=== PATIENT | female | born 1980 | race Two or more races ===

== ENCOUNTER → 2024-05-09 | Outpatient (CLI) | payer BC, SELFPAY ==
[2024-05-09 07:51] LABS: Collection Type, Urine Clean Catch; WBC,Urine 0 /hpf (0-5)
[2024-05-09 08:32] LABS: Vitamin B12 418 pg/mL (211-911); Vitamin D 25 Hydroxy Total 27.8 ng/mL (7.3-40.2)
[2024-05-09 08:37] LABS: Alanine Aminotransferase 16 U/L (10-49); Albumin, Serum 4.3 gm/dL (3.5-5.0); Albumin/Globulin Ratio 1.7 (1.2-2.2); Alkaline Phosphatase 93 U/L (46-116); Anion Gap 7 (7-16); Aspartate Amino Transferase 17 U/L (0-34); BUN/Creatinine Ratio 22 Ratio (12-20); Bilirubin,Total 0.5 mg/dL (0.3-1.2); Blood Urea Nitrogen 13 mg/dL (9-23); Calcium 8.8 mg/dL (8.3-10.6); Calcium (Corrected) 8.8 mg/dL (8.5-10.1); Carbon Dioxide 25.9 mMol/L (20.0-31.0); Chloride 107 mMol/L (98-107); Cholesterol 110 mg/dL (132-200); Creatinine (Component) 0.6 mg/dL (0.6-1.3); Globulin 2.6 gm/dL (2.3-3.5); Glucose 82 mg/dL (74-106); HDL Cholesterol 54 mg/dL (40-60); LDL Cholesterol,Calculated 43 mg/dL (0-130); Osmolality,Calculated 278 (275-295); Potassium 4.5 mMol/L (3.4-5.1); Sodium 140 mMol/L (136-145); Thyroid Stimulating Hormone 2.63 uIU/mL (0.55-4.78); Total Protein 6.9 gm/dL (5.7-8.2); Triglycerides 66 mg/dL (30-150); eGFR > 60 See Note
[2024-05-09 08:50] LABS: Glucose Estimated Average 108 mg/dL (80-131); Hemoglobin A1C 5.4 % Hgb (4.8-6.0)
[2024-05-09 09:15] LABS: Basophils % (Auto) 1 % (0-2.5); Eosinophils # (Auto) 0.1 Thou/mm3 (0.0-0.5); Eosinophils % (Auto) 1 % (0-10); Hematocrit 32.4 % (36.0-46.0); Hemoglobin 10.1 g/dL (12.0-16.0); Immature Granulocytes % (Auto) 0 % (0-0); Immature Granulocytes Auto 0.01 Thou/mm3 (0.00-0.00); Lymphocytes # (Auto) 1.8 Thou/mm3 (1.0-4.8); Lymphocytes % (Auto) 32 % (10-50); Mean Corpuscular HGB Conc 31.2 g/dl (31.0-37.0); Mean Corpuscular Hemoglobin 23.7 pg (25.0-35.0); Mean Corpuscular Volume 76 fL (80-100); Monocytes # (Auto) 0.4 Thou/mm3 (0.0-0.8); Monocytes % (Auto) 7 % (0-12); Neutrophils # (Auto) 3.4 Thou/mm3 (1.8-7.7); Neutrophils % (Auto) 59 % (37-80); Nucleated Red Blood Cell % 0 /100 WBC (0); Platelet Count 219 Thou/mm3 (140-440); RDW Standard Deviation 38.5 fL (36.4-46.3); Red Blood Count 4.26 Miln/mm3 (4.00-5.20); White Blood Count 5.8 Thou/mm3 (3.6-11.0)
[2024-05-09 10:09] LABS: Bacteria,Urine Rare; Bilirubin,Urine Negative (Negative); Blood,Urine Trace (Negative); Clarity,Urine Clear (Clear/Hazy); Color,Urine Yellow (Lt Yel-Yel); Glucose, Urine Negative (Negative); Ketones,Urine Negative (Negative); Leukocyte Esterase,Urine Negative (Negative); Nitrite,Urine Negative (Negative); PH,Urine 6.5 (5.0-7.0); Protein,Urine Negative (Neg - Trace); RBC,Urine 4 /hpf (0-3); Specific Gravity,Urine 1.025 (1.001-1.035); Squamous Epithelial Cell,Urine 2 /hpf (0-5)
== END | disposition home or self-care (01) ==
PROVIDERS: PCP Internal Medicine; Referring Provider Internal Medicine; Visit Provider Internal Medicine
DX: Z00.00 Encounter for general adult medical examination without abnormal findings (principal)
CPT/HCPCS: 36415; 80053; 80061; 81001; 82306; 82607; 83036; 84443; 84550; 85025

== ENCOUNTER → 2024-06-01 | Outpatient (CLI) | payer BC, SELFPAY ==
--- NOTE | 2024-06-01 16:00 | XR_ITS ---
Examination: CT chest, without intravenous contrast. Sagittal and coronal 2-D reconstructions. Exam date and time: June 01, 2024 1609 hours INDICATIONS: CT chest October 26, 2023 3 mm nodule meters nodule right lower 4 mm pulmonary nodule left lower CTDI:vol (mGy) 14 DLP: (mGycm) 80 Technique: Multiple 3.0 mm axial sections of the chest to been obtained. Bone and lung density settings are obtained. Sagittal and coronal 2-D reconstructions have been obtained. Low dose protocols were performed. One or more of the following dose reduction techniques were used; automated exposure control, adjustment of the mA and/or KV according to patient size, use of iterative reconstruction technique. Findings: No thoracic aortic aneurysm dilatation Pulmonary artery segments are not enlarged No paratracheal tracheobronchial or pulmonary adenopathy Stable bilateral pulmonary nodules No new pulmonary nodules No pneumonia pulmonary edema disease No visualized liver or splenic lesion Gastric sutures Absent gallbladder No hydronephrosis IMPRESSION: Stable bilateral subcentimeter pulmonary nodules No new pulmonary nodules
== END | disposition home or self-care (01) ==
PROVIDERS: PCP Internal Medicine; Referring Provider Specialist; Visit Provider Specialist
DX: R91.1 Solitary pulmonary nodule (principal)
CPT/HCPCS: 71250

== ENCOUNTER 2024-07-05 05:30 | Inpatient (IN) | payer BC, SELFPAY ==
--- NOTE | 2024-07-01 08:02 | ESHP_ITS ---
RE: THAO THOMSON : 1980 DATE OF ADMISSION: 07/05/2024 HISTORY OF PRESENT ILLNESS: This is a 44-year-old gravity 3, para 3 with abnormal uterine bleeding, leiomyomatous uterus, dysmenorrhea, who presents for hysterectomy. ALLERGIES: NO KNOWN DRUG ALLERGIES. MEDICATIONS: None. PAST MEDICAL HISTORY: Cutaneous leiomyoma, benign pulmonary nodule, cholelithiasis, gastric bypass, iron deficiency anemia. PAST SURGICAL HISTORY: delivery in 2006 and 2008, bilateral tubal ligation with delivery in 2008. FAMILY HISTORY: Mother with diabetes and asthma. REVIEW OF SYSTEMS: The patient denies any chest pain, palpitations, cough, fever, shortness of breath, or lower extremity pain. PHYSICAL EXAMINATION: VITAL SIGNS: Blood pressure 129/75, heart rate 67, respirations 18, temperature 98.7, weight 166 pounds. HEENT: Oropharynx and sclerae are clear. LUNGS: Clear to auscultation bilaterally. HEART: Regular rate and rhythm. ABDOMEN: Old Pfannenstiel scar noted. EXTREMITIES: Nontender. SKIN: No gross rashes or lesions. NEUROLOGIC: No focal deficits. ASSESSMENT: Symptomatic leiomyomatous uterus. PLAN: Abdominal hysterectomy, possible bilateral salpingo-oophorectomy, possible subtotal abdominal hysterectomy. Informed consent was obtained. The patient made aware of the risks, complications, alternatives, and benefits of the proposed procedure and she agrees. She is aware of the risk of injury to bowel or bladder, uterus, ureters, adjacent organs, nerve injury to the legs and skin, pulmonary embolism, deep vein thrombosis, injury to the vessels of the abdominal wall, hematoma, abscess, wound infection, wound dehiscence, pelvic infection, reoperation to repair injury to internal organs, anesthesia complications, the need for future surgery to remove ovaries, the need to take hormone therapy and its associated risks, uncontrollable loss of urine symptoms, prolapse of the vagina, and rarely . She is aware that in some cases, a subtotal hysterectomy may need to be performed if severe adhesions of bladder to lower uterine segment and she is aware that in rare cases, the procedure is unable to be performed due to intraoperative findings prohibiting the procedure to be completed. DT: 06:52:16 TT: 07:53:00 Ref: [id number] - TID: [id number] [facility]
[2024-07-04 10:21] VITALS: BMI 35.6
[2024-07-04 11:02] LABS: Basophils % (Auto) 1 % (0-2.5); Eosinophils # (Auto) 0.1 Thou/mm3 (0.0-0.5); Eosinophils % (Auto) 1 % (0-10); Hematocrit 32.2 % (36.0-46.0); Hemoglobin 9.9 g/dL (12.0-16.0); Immature Granulocytes % (Auto) 0 % (0-0); Immature Granulocytes Auto 0.02 Thou/mm3 (0.00-0.00); Lymphocytes # (Auto) 1.8 Thou/mm3 (1.0-4.8); Lymphocytes % (Auto) 34 % (10-50); Mean Corpuscular HGB Conc 30.7 g/dl (31.0-37.0); Mean Corpuscular Hemoglobin 22.6 pg (25.0-35.0); Mean Corpuscular Volume 74 fL (80-100); Monocytes # (Auto) 0.4 Thou/mm3 (0.0-0.8); Monocytes % (Auto) 7 % (0-12); Neutrophils # (Auto) 3.1 Thou/mm3 (1.8-7.7); Neutrophils % (Auto) 58 % (37-80); Nucleated Red Blood Cell % 0 /100 WBC (0); Platelet Count 261 Thou/mm3 (140-440); RDW Standard Deviation 35.8 fL (36.4-46.3); Red Blood Count 4.38 Miln/mm3 (4.00-5.20); White Blood Count 5.4 Thou/mm3 (3.6-11.0)
[2024-07-04 11:10] LABS: Partial Thromboplastin Time 24.5 Seconds (22.0-36.0); Prothrombin Time 11.2 Seconds (9.0-12.2)
[2024-07-04 11:16] LABS: Alanine Aminotransferase 17 U/L (10-49); Albumin, Serum 4.4 gm/dL (3.5-5.0); Albumin/Globulin Ratio 1.5 (1.2-2.2); Alkaline Phosphatase 98 U/L (46-116); Anion Gap 10 (7-16); Aspartate Amino Transferase 21 U/L (0-34); BUN/Creatinine Ratio 15 Ratio (12-20); Beta HCG,Quantitative < 1 mIU/mL (<5.0); Bilirubin,Total 0.5 mg/dL (0.3-1.2); Blood Urea Nitrogen 9 mg/dL (9-23); Calcium 8.7 mg/dL (8.3-10.6); Calcium (Corrected) 8.7 mg/dL (8.5-10.1); Carbon Dioxide 23.4 mMol/L (20.0-31.0); Chloride 107 mMol/L (98-107); Creatinine (Component) 0.6 mg/dL (0.6-1.3); Estimated Creatinine Clearance 99.2 mL/min (>60); Globulin 2.9 gm/dL (2.3-3.5); Glucose 84 mg/dL (74-106); Osmolality,Calculated 277 (275-295); Sodium 140 mMol/L (136-145); Total Protein 7.3 gm/dL (5.7-8.2); eGFR > 60 See Note
[2024-07-05] VITALS (11 sets, daily range): BP systolic 99–133; BP diastolic 53–79; PULSE 68–96; RESP 12–20; TEMP 36.4–36.8; O2SAT 96–100; BMI 35.4
[2024-07-05] MEDS: RINGERS LACTATED 1000 ML 1,000 ML 30 ML IV (06:13)
--- NOTE | 2024-07-05 07:20 | CHAP ---
Had a prayer with patient and spouse and gave encouragement.
--- NOTE | 2024-07-05 09:16 | SUR.PHASEI ---
0916 Patient arrived to recovery resting comfortably in bed, on oxygen 8L via oxy mask with an oral airway in place, breathing unlabored, vital signs stable, dressing intact to lower abdomen; prineo abd, medipore tape, no bleeding noted, urinary catheter 16F in place with leg secure; draining to gravity, lung sounds clear upon auscultation, bilateral radial pulses present when palpated, report received from Rosemary MAXWELL/Dr. Elpidio SHORT.
[2024-07-05] MEDS: Morphine Sulfate PF 1 MG/ML PCA VIAL 30 ML 30 MG IV (09:42)
--- NOTE | 2024-07-05 10:02 | ESOP_ITS ---
RE: THAO THOMSON : 1980 DATE OF OPERATION: 07/05/2024 PREOPERATIVE DIAGNOSES: 1. Abnormal uterine bleeding. 2. Leiomyomatous uterus. 3. Dysmenorrhea. POSTOPERATIVE DIAGNOSES: 1. Abnormal uterine bleeding. 2. Leiomyomatous uterus. 3. Dysmenorrhea. 4. Pelvic adhesions. PROCEDURES PERFORMED: 1. Total abdominal hysterectomy. 2. Bilateral salpingectomy. 3. Lysis of adhesions. 4. Right ovarian cystectomy. SURGEON: Sushant Dotson DO KLYSTROM TUBE TESTER: DALILA Wynn ANESTHESIA: General. ANESTHESIOLOGIST: Dr. Dunbar. ESTIMATED BLOOD LOSS: 25 mL. URINE OUTPUT: See RN notes. IV FLUIDS: See anesthesia notes. FINDINGS: A 10-week size leiomyomatous uterus with normal-appearing left ovary and a 2 x 2 cm right ovarian cyst with fallopian tubes missing the mid ampullary segments. DESCRIPTION OF PROCEDURE: The risks, benefits, indications, and alternatives of the procedure were reviewed with the patient. Informed consent was obtained. She was taken to the operating room with IV running. She received antibiotics prior to the procedure. STEPHANIE hose and flow trials were in place. She was placed in the supine position on the operating room table. She underwent induction of general anesthesia. A Galan catheter was placed. She was prepped and draped in the usual sterile fashion. A timeout was performed. A Pfannenstiel skin incision was made with the scalpel, carried through to the underlying layer of fascia with the Bovie. The fascia was nicked in the midline incision extending bilaterally to the Bovie. The inferior aspect of the fascial incision was grasped with Francesca clamps, elevated. The underlying rectus muscles were dissected off with the Bovie. The rectus muscles were at the midline. The peritoneum identified between 2 Lieberman clamps and entered sharply with Metzenbaum scissors. The incision was extended superiorly and inferiorly with good visualization of the bladder. The patient was placed in slight Trendelenburg. The O'Donal-O'Stern retractor was placed and the bowel packed away with 3 moist laparotomy pads and the upper and lower retractors were attached to the O'Donal-O'Stern. The round ligaments on each side were then doubly clamped with Francesca clamps, transected, and suture ligated with #0 Vicryl. The anterior leaf of the broad ligament was incised along the bladder reflection to the midline from both sides. There were adhesions of the bladder to the lower uterine segment, which were lysed with Metzenbaum scissors. The Enseal X1 large jaw device was then used to grasp the utero-ovarian ligament on either side and it was clamped, fulgurated, and transected and hemostasis was achieved. The broad ligament on either side was clamped with the Enseal X1 large jaw, fulgurated, transected, and hemostasis was achieved. The uterine arteries on both sides were then clamped with the Enseal X1 large jaw, fulgurated, transected, and hemostasis was achieved. The bladder was dissected further off the lower uterine segment and the straight Julisa was used to grasp the left and right cardinal uterosacral ligaments using the scalpel and 0 Vicryl suture. Hemostasis was achieved. The uterus was amputated at the cervical vaginal stump and the vaginal cuff was closed with a series of interrupted [id number] sutures of #0 Vicryl. Each fallopian tube was grasped with a Mere clamp and using the Enseal X1 large jaw. Bilateral salpingectomy was performed. The right ovary cyst was excised using the Bovie and hemostasis was achieved. The pelvis was copiously irrigated with warm normal saline solution. The pelvis was visualized for several minutes and no additional bleeding was noted and the lap pads were removed. The O'Donal-O'Stern was removed. The peritoneum was closed with a chromic catgut suture in running fashion. The muscle was closed with a #0 chromic catgut suture in running fashion. The fascia was closed with #0 Vicryl beginning at each angle and ending in a center in running fashion. The subcutaneous tissue was irrigated with normal saline solution and found to be hemostatic and closed with 2-0 chromic catgut suture in running fashion. The skin was closed with 4-0 Monocryl. A Dermabond Prineo dressing was applied. A sterile pressure dressing was applied. She tolerated the procedure well. Counts were correct. I discussed with the patient's the nature of her condition, intraoperative findings, expectation for recovery. All questions were answered. DT: 09:03:54 TT: 10:01:00 Ref: [id number] - TID: [id number]
--- NOTE | 2024-07-05 10:05 | SUR.PHASEI ---
1001 Report given to Esthela SHORT, patient meets discharge criteria from recovery, awake and alert, breathing unlabored, vital signs stable, patient pain controlled with DONOR SERVICES MANAGER, dressing intact; no bleeding noted, eating ice chips; tolerating well, denies nausea, patient mother and at bedside with patient. 1005 Patient transported via bed to room 460 without incident, patients mother and accompanied transport.
[2024-07-05] MEDS: KETOROLAC INJ 30 MG/ML VIAL IVP (10:29)
--- NOTE | 2024-07-05 11:40 | PC.NURSE ---
Dr. Adams called to [facility] IV fluid orders. Ordered received for lactated ringers at 125mls/hr until pt in able to tolerate regular diet.
[2024-07-05] MEDS: RINGERS LACTATED 1000 ML 1,000 ML 125 ML IV ×2 (11:46→20:00)
[2024-07-05 13:22] LABS: Basophils % (Auto) 0 % (0-2.5); Eosinophils % (Auto) 0 % (0-10); Hematocrit 29.9 % (36.0-46.0); Hemoglobin 9.2 g/dL (12.0-16.0); Immature Granulocytes % (Auto) 1 % (0-0); Immature Granulocytes Auto 0.09 Thou/mm3 (0.00-0.00); Lymphocytes # (Auto) 0.3 Thou/mm3 (1.0-4.8); Lymphocytes % (Auto) 2 % (10-50); Mean Corpuscular HGB Conc 30.8 g/dl (31.0-37.0); Mean Corpuscular Hemoglobin 23.1 pg (25.0-35.0); Mean Corpuscular Volume 75 fL (80-100); Monocytes % (Auto) 0 % (0-12); Neutrophils # (Auto) 12.5 Thou/mm3 (1.8-7.7); Neutrophils % (Auto) 97 % (37-80); Nucleated Red Blood Cell % 0 /100 WBC (0); Platelet Count 199 Thou/mm3 (140-440); RDW Standard Deviation 35.8 fL (36.4-46.3); Red Blood Count 3.98 Miln/mm3 (4.00-5.20); White Blood Count 12.9 Thou/mm3 (3.6-11.0)
--- NOTE | 2024-07-05 14:56 | PC.RT ---
Incentive Spirometer completed by nursing
[2024-07-06] VITALS (7 sets, daily range): BP systolic 103–117; BP diastolic 64–76; PULSE 62–87; RESP 14–18; TEMP 36.5–36.9; O2SAT 96–99
[2024-07-06] MEDS: KETOROLAC INJ 30 MG/ML VIAL IVP ×2 (01:20→15:45)
[2024-07-06] MEDS: Morphine Sulfate PF 1 MG/ML PCA VIAL 30 ML 30 MG IV (01:45)
[2024-07-06] MEDS: RINGERS LACTATED 1000 ML 1,000 ML 125 ML IV (04:20)
[2024-07-06] MEDS: DOCUSATE SOD 100 MG CAPSULE PO (08:45)
[2024-07-06] MEDS: DiphenhydrAMINE 25 MG CAPSULE PO (08:45)
--- NOTE | 2024-07-06 09:48 | ESPR_ITS ---
RE: THAO THOMSON : 1980 DATE OF SERVICE: 07/06/2024 S: Postop day #1, the patient denies any problem or complaints. She is voiding. She is ambulating. She is tolerated regular diet. She is passing flatus. She denies any vaginal bleeding. She denies any dizziness or lightheadedness. She denies any chest pain, palpitations, shortness of breath, lower extremity pain or swelling. O: Vital Signs: Blood pressure 104/64, heart rate 63, respirations 14, temperature is 98.2, and pulse ox is 96% on room air. Lungs: Clear to auscultation bilaterally. Heart: Regular rate and rhythm. Abdomen: Dressing dry and intact. Extremities: Nontender. Laboratory Data: Hemoglobin pre-surgery is 9.9 and post surgery is 9.2. A: 1. Postoperative day #1, status post total abdominal hysterectomy, bilateral salpingectomy, right ovarian cystectomy. 2. Anemia, but hemodynamically stable. P: Remove dressing. Encourage ambulation. Possible discharge home tomorrow. DT: 09:31:23 TT: 09:46:00 Ref: [id number] - TID: [id number]
[2024-07-07 03:51] VITALS: BP 115/75; PULSE 73; RESP 16; TEMP 36.6; O2SAT 97
--- NOTE | 2024-07-07 04:56 | ESPR_ITS ---
RE: THAO THOMSON : 1980 DATE OF SERVICE: 07/07/2024 Postop day #2, the patient denies any problem or complaint. She is voiding. She is ambulating. She is tolerating diet. She is passing flatus. She denies any vaginal bleeding. She denies any dizziness or lightheadedness. She denies any chest pain, palpitations, shortness of breath or lower extremity pain. OBJECTIVE: Vital Signs: Blood pressure 115/75, heart rate 73, respirations 16, temperature is 97.8, pulse ox is 97% on room air. Lungs: Clear to auscultation bilaterally. Heart: Regular rate and rhythm. Abdomen: Incision clear and intact. Extremities: Nontender. No edema. ASSESSMENT: Postoperative day #2, status post abdominal hysterectomy, bilateral salpingectomy, lysis of adhesions and right ovarian cystectomy. PLAN: Discharge home. Discharge instructions given. Follow up in the office in one week. DT: 04:27:36 TT: 04:55:00 Ref: [id number] - TID: [id number]
[2024-07-07] MEDS: KETOROLAC INJ 30 MG/ML VIAL IVP ×2 (06:00)
--- NOTE | 2024-07-07 06:37 | ESDS_ITS ---
RE: THAO THOMSON : 1980 DATE OF ADMISSION: 07/05/2024 DATE OF DISCHARGE: 07/07/2024 HOSPITAL COURSE: This is a 44-year-old with symptomatic uterine fibroids who underwent a total abdominal hysterectomy, bilateral salpingectomy, right ovarian cystectomy, and lysis of adhesions on 07/05 under general anesthesia with 50 mL of blood loss without complication. Her postoperative course was unremarkable. She was discharged home on postop day #2. Pathology showed adenomyosis and benign leiomyoma with corpus luteal cyst and normal fallopian tubes. DISCHARGE DIAGNOSES: Symptomatic uterine fibroids, total abdominal hysterectomy, bilateral salpingectomy, right ovarian cystectomy, lysis of adhesions, adenomyosis, leiomyomatous uterus. DT: 05:24:11 TT: 06:37:00 Ref: [id number] - TID: [id number]
[2024-07-07 07:15] VITALS: BP 127/86; PULSE 90; RESP 18; TEMP 36.6; O2SAT 99
== END 2024-07-07 07:50 | disposition home or self-care (01) | DRG 743 ==
LOC: S2W1 09:08 → S4NX 10:18
PROVIDERS: Admitting Provider Specialist; PCP Internal Medicine; Visit Provider Specialist
PROC: 0UT90ZZ Resection of Uterus, Open Approach (ICD-10-PCS; principal; 2024-07-05 07:30)
DX: D25.9 Leiomyoma of uterus, unspecified (principal); N94.6 Dysmenorrhea, unspecified; N73.6 Female pelvic peritoneal adhesions (postinfective); D50.9 Iron deficiency anemia, unspecified; N80.03 Adenomyosis of the uterus; N83.11 Corpus luteum cyst of right ovary; Z98.51 Tubal ligation status; Z98.84 Bariatric surgery status
CPT/HCPCS: 36415; 80053; 84702; 85025; 85610; 85730; 86850; 86900; 86901; A4217; A4649; J0131; J0690; J1100; J1885; J2250; J2270; J2371; J2405; J2704; J2710; J2795; J3010; J3490; J7050; J7120; A9270; J1596

== ENCOUNTER → 2024-11-09 | Outpatient (CLI) | payer BC, SELFPAY ==
[2024-11-09 08:26] LABS: Basophils # (Auto) 0.0 Thou/mm3 (0.0-0.2); Basophils % (Auto) 1 % (0-2.5); Eosinophils # (Auto) 0.0 Thou/mm3 (0.0-0.5); Eosinophils % (Auto) 1 % (0-10); Hematocrit 33.3 % (36.0-46.0); Hemoglobin 10.2 g/dL (12.0-16.0); Immature Granulocytes Auto 0.01 Thou/mm3 (0.00-0.00); Lymphocytes # (Auto) 1.3 Thou/mm3 (1.0-4.8); Lymphocytes % (Auto) 24 % (10-50); Mean Corpuscular HGB Conc 30.6 g/dl (31.0-37.0); Mean Corpuscular Hemoglobin 21.0 pg (25.0-35.0); Mean Corpuscular Volume 69 fL (80-100); Monocytes # (Auto) 0.4 Thou/mm3 (0.0-0.8); Monocytes % (Auto) 8 % (0-12); Neutrophils # (Auto) 3.5 Thou/mm3 (1.8-7.7); Neutrophils % (Auto) 67 % (37-80); Nucleated Red Blood Cell # 0.00 Thou/mm3 (0.00-0.00); Nucleated Red Blood Cell % 0 /100 WBC (0); Platelet Count 244 Thou/mm3 (140-440); RDW Standard Deviation 37.5 fL (36.4-46.3); Red Blood Count 4.85 Miln/mm3 (4.00-5.20); White Blood Count 5.2 Thou/mm3 (3.6-11.0)
[2024-11-09 08:35] LABS: Glucose Estimated Average 117 mg/dL (80-131); Hemoglobin A1C 5.7 % Hgb (4.8-6.0)
[2024-11-09 08:59] LABS: Vitamin B12 377 pg/mL (211-911); Vitamin D 25 Hydroxy Total 32.0 ng/mL (7.3-40.2)
[2024-11-09 09:04] LABS: Alanine Aminotransferase 14 U/L (10-49); Albumin, Serum 4.4 gm/dL (3.5-5.0); Albumin/Globulin Ratio 1.5 (1.2-2.2); Alkaline Phosphatase 126 U/L (46-116); Anion Gap 10 (7-16); Aspartate Amino Transferase 23 U/L (0-34); BUN/Creatinine Ratio 14 Ratio (12-20); Bilirubin,Total 0.4 mg/dL (0.3-1.2); Blood Urea Nitrogen 10 mg/dL (9-23); Calcium 8.8 mg/dL (8.3-10.6); Calcium (Corrected) 8.8 mg/dL (8.5-10.1); Carbon Dioxide 25.1 mMol/L (20.0-31.0); Cardiac Risk Estimate 2.4 RATIO (3.7-5.6); Chloride 106 mMol/L (98-107); Cholesterol 129 mg/dL (132-200); Creatinine (Component) 0.7 mg/dL (0.6-1.3); Globulin 2.9 gm/dL (2.3-3.5); Glucose 84 mg/dL (74-106); HDL Cholesterol 54 mg/dL (40-60); LDL Cholesterol,Calculated 61 mg/dL (0-130); Osmolality,Calculated 279 (275-295); Potassium 4.3 mMol/L (3.4-5.1); Sodium 141 mMol/L (136-145); Thyroid Stimulating Hormone 4.24 uIU/mL (0.55-4.78); Total Protein 7.3 gm/dL (5.7-8.2); Triglycerides 72 mg/dL (30-150); Uric Acid 4.1 mg/dL (3.1-7.8); eGFR > 60 See Note
[2024-11-09 09:10] LABS: Collection Type, Urine Clean Catch
[2024-11-09 09:41] LABS: Bilirubin,Urine Negative (Negative); Blood,Urine Negative (Negative); Clarity,Urine Clear (Clear/Hazy); Color,Urine Yellow (Lt Yel-Yel); Glucose, Urine Negative (Negative); Ketones,Urine Negative (Negative); Leukocyte Esterase,Urine Negative (Negative); Nitrite,Urine Negative (Negative); PH,Urine 6.5 (5.0-7.0); Protein,Urine Trace (Neg - Trace); RBC,Urine 7 /hpf (0-3); Specific Gravity,Urine 1.029 (1.001-1.035); Squamous Epithelial Cell,Urine 6 /hpf (0-5); Urobilinogen,Urine 2.0 mg/dL (0.0-1.0); WBC,Urine 1 /hpf (0-5)
[2024-11-09 10:55] LABS: Path Review Blood Smear Sent to Pathologist
== END | disposition home or self-care (01) ==
LOC: COPL 07:51
PROVIDERS: PCP Internal Medicine; Referring Provider Internal Medicine; Visit Provider Internal Medicine
DX: Z00.00 Encounter for general adult medical examination without abnormal findings (principal)
CPT/HCPCS: 36415; 80053; 80061; 81001; 82306; 82607; 83036; 84443; 84550; 85025

== ENCOUNTER → 2024-12-28 | Outpatient (CLI) | payer BC, SELFPAY ==
--- NOTE | 2024-12-28 08:00 | XR_ITS ---
Examination: Screening digital mammography, bilateral Computer aided detection 3-D breast Tomosynthesis, bilateral Date and time of exam: December 28, 2024, 0743 hours, compared to mammograms dating to July 27, 2019 Indication: Screening Technique: Nonmagnified MLO, CC views of the breasts to been obtained, reconstructed from 3-D Tomosynthesis images. R2 computer aided detection program utilized for evaluation of suspicious masses and/or abnormal calcifications. 3-D Tomosynthesis images obtained. Findings: Scattered areas of fibroglandular density. Benign calcifications. No interval suspicious masses Impression: BI-RADS category II: Benign Findings. Recommend 1 year follow-up mammogram.
== END | disposition home or self-care (01) ==
LOC: CDIM 07:36
PROVIDERS: Referring Provider Internal Medicine; Visit Provider Internal Medicine
DX: Z12.31 Encounter for screening mammogram for malignant neoplasm of breast (principal); R92.323 Mammographic fibroglandular density, bilateral breasts; R92.1 Mammographic calcification found on diagnostic imaging of breast
CPT/HCPCS: 77063; 77067

== ENCOUNTER 2025-01-20 07:55 | Day surgery (SDC) | payer BC, SELFPAY ==
[2025-01-19 15:28] VITALS: BMI 34.6
[2025-01-20] VITALS (9 sets, daily range): BP systolic 120–148; BP diastolic 82–95; PULSE 61–85; RESP 12–19; TEMP 36.7–37.1; O2SAT 95–100; BMI 33.4
[2025-01-20] MEDS: SODIUM CHLORIDE 0.9% 500 ML 500 ML 20 ML IV (09:55)
[2025-01-20] MEDS: MIDAZOLAM INJ 1 MG/ML VIAL 2 ML (ASD USE ONLY) 2 MG IVP (10:04)
[2025-01-20] MEDS: fentaNYL CIT INJ 50 mCg/ML AMP 2ML (ASD USE ONLY) IVP (10:04)
== END 2025-01-20 10:59 | disposition home or self-care (01) ==
PROVIDERS: PCP Internal Medicine; Referring Provider Specialist; Visit Provider Specialist
PROC: 0DBE8ZX Excision of Large Intestine, Via Natural or Artificial Opening Endoscopic, Diagnostic (ICD-10-PCS; CPT 45380; principal; 2025-01-20 11:45)
DX: Z12.11 Encounter for screening for malignant neoplasm of colon (principal); K64.9 Unspecified hemorrhoids; K57.30 Diverticulosis of large intestine without perforation or abscess without bleeding
CPT/HCPCS: 45378; A4649; J1200; J2250; J3010; J7999